=== PATIENT | female | born 1985 | race Caucasian/White ===

== ENCOUNTER → 2016-08-09 | Outpatient (REF) | payer OTHER ==
[~2016-08-09] MED LIST: /PANT40TA PO; CEFD300CAP PO; CELE-19 PO; FERR325T PO; FERROUS SULFATE PO; MACR100C3 PO; MAG400TA PO; MAXA10TA15 PO; MYLI40DR PO; NEUR600T PO; NO HISTORICAL MEDS; PAXI10TA2 PO; PERCOCET PO; POTA10CA PO; PROT1TAB2 PO; TYLE325T5 PO; VITMTA PO
[2016-08-09 20:15] LABS: ALBUMIN 3.8 GM/DL (3.2-5.2); ALBUMIN/GLOBULIN RATIO 1.03 (1.00-1.93); ALKALINE PHOSPHATASE 88 U/L (45-117); ALT/SGPT 18 U/L (12-78); ANION GAP 5 MEQ/L (8-16); AST/SGOT 16 U/L (15-37); BILIRUBIN,TOTAL 0.3 MG/DL (0.2-1.0); BLOOD UREA NITROGEN 6 MG/DL (7-18); CALCIUM LEVEL 8.2 MG/DL (8.5-10.1); CARBON DIOXIDE LEVEL 29 MEQ/L (21-32); CHLORIDE LEVEL 105 MEQ/L (98-107); CREATININE FOR GFR 0.81 MG/DL (0.55-1.02); GLOMERULAR FILTRATION RATE > 60.0 (>60); GLUCOSE, FASTING 79 MG/DL (70-105); SODIUM LEVEL 139 MEQ/L (136-145); TOTAL PROTEIN 7.5 GM/DL (6.4-8.2)
[2016-08-09 20:23] LABS: FOLATE 13.1 NG/ML; VITAMIN B12 LEVEL 331 PG/ML
[2016-08-09 20:59] LABS: MEAN CORPUSCULAR HEMOGLOBIN 26.1 pg (27.0-33.0); MEAN CORPUSCULAR HGB CONC 32.1 g/dl (32.0-36.5); MEAN CORPUSCULAR VOLUME 81.4 fl (80.0-96.0); RED CELL DISTRIBUTION WIDTH 16.1 % (11.5-14.5); WHITE BLOOD COUNT 5.6 K/mm3 (4.0-10.0)
== END ==
LOC: M SFHCADAM 15:31
PROVIDERS: ATTEND Physician Assistant
DX: D50.9 Iron deficiency anemia, unspecified (principal); Z98.890 Other specified postprocedural states

== ENCOUNTER → 2017-01-24 | Outpatient (CLI) | payer OTHER ==
[~2017-01-24] MED LIST changes: -CELE-19 PO; +CELE1CAP4 PO; +FERR1TAB8 PO; -FERR325T PO; +GASTROGRAFIN SOLUTION 30ML (Q9963) As Ordered ONE; +ISOVUE-370 76% 100ML VIAL (Q9967) As Ordered ONE; -MACR100C3 PO; +MACR100C43 PO; +PAXI10TA12 PO; -PAXI10TA2 PO; +RANI150T PO; +VIST25CA PO; +ZOFR4TAB3 PO
--- NOTE | 2017-01-24 17:02 | REP ---
Clinical: Abdominal pain and constipation. Technique: Axial contrast enhanced images from the lung bases to the pubic symphysis using oral and 100 ml Isovue 370 intravenous contrast material with precontrast images of the abdomen as well as coronal and sagittal re-formations. Comparison: 01/13/2016. Findings: Lung bases are clear. Visualized heart and pericardium normal. Liver, spleen, pancreas, bilateral adrenal glands and kidneys are normal the patient is status post cholecystectomy. The enteric system is without obstruction or acute inflammatory process. 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 The pelvis demonstrates normal bladder and age-appropriate uterus/adnexa. Right tubal ligation clip identified; left clip is not visualized and should be correlated with possible history of prior left oophorectomy. No pelvic fluid or ascites. No free air. No adenopathy. Vasculature is normal. Musculoskeletal structures are intact. Impression: Normal contrast enhanced CT of the abdomen and pelvis. No acute abdominopelvic pathology appreciated. Signed by Tristin Banuelos MD 01/24/2017 04:53 P
== END ==
LOC: M RAD 14:25
PROVIDERS: ATTEND Surgery
DX: R10.84 Generalized abdominal pain (principal); K58.2 Mixed irritable bowel syndrome

== ENCOUNTER → 2017-01-26 | Outpatient (REF) | payer OTHER ==
[~2017-01-26] MED LIST changes: -GASTROGRAFIN SOLUTION 30ML (Q9963) As Ordered ONE; -ISOVUE-370 76% 100ML VIAL (Q9967) As Ordered ONE
[2017-01-26 19:29] LABS: MEAN CORPUSCULAR HEMOGLOBIN 27.2 pg (27.0-33.0); MEAN CORPUSCULAR HGB CONC 32.1 g/dl (32.0-36.5); MEAN CORPUSCULAR VOLUME 84.6 fl (80.0-96.0); RED CELL DISTRIBUTION WIDTH 16.8 % (11.5-14.5); WHITE BLOOD COUNT 9.4 K/mm3 (4.0-10.0)
[2017-01-26 19:41] LABS: ALBUMIN 3.7 GM/DL (3.2-5.2); ALBUMIN/GLOBULIN RATIO 1.23 (1.00-1.93); ALKALINE PHOSPHATASE 79 U/L (45-117); ALT/SGPT 21 U/L (12-78); ANION GAP 6 MEQ/L (8-16); AST/SGOT 15 U/L (15-37); BILIRUBIN,TOTAL 0.3 MG/DL (0.2-1.0); BLOOD UREA NITROGEN 8 MG/DL (7-18); CALCIUM LEVEL 8.6 MG/DL (8.5-10.1); CARBON DIOXIDE LEVEL 28 MEQ/L (21-32); CHLORIDE LEVEL 105 MEQ/L (98-107); CREATININE FOR GFR 0.69 MG/DL (0.55-1.02); GLOMERULAR FILTRATION RATE > 60.0 (>60); GLUCOSE, FASTING 81 MG/DL (70-105); POTASSIUM SERUM 4.4 MEQ/L (3.5-5.1); SODIUM LEVEL 139 MEQ/L (136-145); TOTAL PROTEIN 6.7 GM/DL (6.4-8.2)
[2017-01-26 20:17] LABS: VITAMIN B12 LEVEL 299 PG/ML
== END ==
LOC: M SFHCADAM 15:43
PROVIDERS: ATTEND Physician Assistant
DX: D50.9 Iron deficiency anemia, unspecified (principal); Z98.890 Other specified postprocedural states; E55.9 Vitamin D deficiency, unspecified

== ENCOUNTER 2017-05-26 22:10 | Emergency (ER) | payer OTHER ==
[~2017-05-26] VITALS: Ht 167.6 cm; Wt 72.7 kg
[~2017-05-26 22:10] MED LIST changes: -RANI150T PO; -VIST25CA PO; -ZOFR4TAB3 PO
[2017-05-26] MEDS ORDERED: RANI150T PO (22:21)
[2017-05-26] MEDS ORDERED: ONDANSETRON 4MG/2ML VIAL (J2405) IV ONE (23:45)
[2017-05-26] MEDS ORDERED: NS 1,000 ML IV ONE (23:45)
[2017-05-27 00:33] LABS: CONTROL LINE UCG INT CTR LINE PRESENT
[2017-05-27 00:41] LABS: BASO % 0.4 % (0.0-1.0); EOS # 0.1 10^3/uL (0.0-0.50); EOS % 0.8 % (0.0-3.0); IMMATURE GRANULOCYTE % 0.4 % (0-0); LYMPH # 3.3 10^3/uL (1.5-4.5); LYMPH % 46.1 % (24.0-44.0); MEAN CORPUSCULAR HEMOGLOBIN 26.7 pg (27.0-33.0); MEAN CORPUSCULAR HGB CONC 31.6 g/dl (32.0-36.5); MEAN CORPUSCULAR VOLUME 84.4 fl (80.0-96.0); MONO # 0.5 10^3/uL (0.0-0.8); MONO % 6.9 % (0.0-5.0); NEUTROPHILS # 3.2 10^3/uL (1.8-7.7); NEUTROPHILS % 45.4 % (36.0-66.0); PLATELET COUNT, AUTOMATED 202 10^3/uL (150-450); RED CELL DISTRIBUTION WIDTH 16.3 % (11.5-14.5); WHITE BLOOD COUNT 7.1 10^3/uL (4.0-10.0)
[2017-05-27 00:49] LABS: ALBUMIN 3.3 GM/DL (3.2-5.2); ALBUMIN/GLOBULIN RATIO 1.06 (1.00-1.93); ALKALINE PHOSPHATASE 85 U/L (45-117); ALT/SGPT 22 U/L (12-78); ANION GAP 5 MEQ/L (8-16); AST/SGOT 16 U/L (7-37); BILIRUBIN,TOTAL 0.2 MG/DL (0.2-1.0); BLOOD UREA NITROGEN 6 MG/DL (7-18); CALCIUM LEVEL 8.5 MG/DL (8.5-10.1); CARBON DIOXIDE LEVEL 29 MEQ/L (21-32); CHLORIDE LEVEL 108 MEQ/L (98-107); CREATININE FOR GFR 0.55 MG/DL (0.55-1.02); GLOMERULAR FILTRATION RATE > 60.0 (>60); GLUCOSE, FASTING 94 MG/DL (70-105); POTASSIUM SERUM 3.5 MEQ/L (3.5-5.1); SODIUM LEVEL 142 MEQ/L (136-145); TOTAL PROTEIN 6.4 GM/DL (6.4-8.2)
[2017-05-27] MEDS ORDERED: PERCOCET 5MG/325MG TAB PO ONE ×2 (01:15→01:30)
[2017-05-27 01:28] VITALS: BP 123/62
[2017-05-27] MEDS ORDERED: ONDANSETRON 4 MG ORAL DISINTEGRATING TAB (S0181) PO ONE (01:30)
[2017-05-27] MEDS ORDERED: VIST25CA PO (01:39)
[2017-05-27] MEDS ORDERED: ZOFR4TAB3 PO (01:39)
== END 2017-05-27 01:48 | disposition home or self-care (01) ==
LOC: M ED 22:10
DX: R10.9 Unspecified abdominal pain (principal); Z98.84 Bariatric surgery status
CPT/HCPCS: 80053; 81001; 83690; 84703; 85025; 87086; 96374; 99284; J2405

== ENCOUNTER → 2017-08-08 | Outpatient (REF) | payer OTHER | LOC: M LAB REF 11:23 | DX: R10.13 Epigastric pain (principal) | CPT/HCPCS: 83630 ==

== ENCOUNTER → 2017-08-09 | Outpatient (CLI) | payer OTHER ==
[2017-08-09 11:49] LABS: CREATININE FOR GFR 0.71 MG/DL (0.55-1.02); FERRITIN 21 NG/ML (8-252); GLOMERULAR FILTRATION RATE > 60.0 (>60); IRON (FE) 128 UG/DL (50-170); LIPASE 146 U/L (73-393); PERCENT SATURATION 34.9 % (13.2-45.0); TOTAL IRON BINDING CAPACITY 367 UG/DL (250-450)
[2017-08-09 11:49] LABS: BLOOD UREA NITROGEN 8 MG/DL (7-18)
[2017-08-12 08:06] LABS: IgG SUBCLASS 4(ONLY) <1 mg/dL (2-96)
== END ==
LOC: M LAB 10:47
DX: R10.13 Epigastric pain (principal)
CPT/HCPCS: 82565

== ENCOUNTER 2017-08-13 10:30 | Day surgery (SDC) | payer OTHER ==
[2017-08-13] MEDS: NS 1,000 ML IV (11:44)
[2017-08-13] MEDS ORDERED: PROPOFOL 200 MG/20 ML VIAL As Ordered ×3 (13:11→13:12)
[2017-08-13] MEDS ORDERED: LIDOCAINE 2% INJ 100 MG/5 ML SDV (FOR ANES.) As Ordered (13:12)
== END 2017-08-13 14:16 | disposition home or self-care (01) ==
LOC: M OPP 10:30
DX: R19.7 Diarrhea, unspecified (principal); K64.8 Other hemorrhoids; D50.9 Iron deficiency anemia, unspecified; Z98.0 Intestinal bypass and anastomosis status; K58.9 Irritable bowel syndrome, unspecified; K91.2 Postsurgical malabsorption, not elsewhere classified; K21.9 Gastro-esophageal reflux disease without esophagitis; R12 Heartburn; R23.3 Spontaneous ecchymoses; I95.9 Hypotension, unspecified; M54.9 Dorsalgia, unspecified; F41.9 Anxiety disorder, unspecified; F32.9 Major depressive disorder, single episode, unspecified; R06.2 Wheezing; Z98.84 Bariatric surgery status; Z87.891 Personal history of nicotine dependence; Z79.899 Other long term (current) drug therapy; Z80.49 Family history of malignant neoplasm of other genital organs
CPT/HCPCS: 45380

== ENCOUNTER 2018-01-01 18:51 | Emergency (ER) | payer OTHER ==
[2018-01-01 21:01] LABS: BASO % 0.4 % (0.0-1.0); EOS # 0.1 10^3/uL (0.0-0.50); EOS % 0.9 % (0.0-3.0); HEMATOCRIT 31.8 % (36.0-47.0); HEMOGLOBIN 10.2 g/dl (12.0-15.5); IMMATURE GRANULOCYTE % 0.1 % (0-3.0); LYMPH # 2.3 10^3/uL (1.5-4.5); LYMPH % 32.2 % (24.0-44.0); MEAN CORPUSCULAR HEMOGLOBIN 27.1 pg (27.0-33.0); MEAN CORPUSCULAR HGB CONC 32.1 g/dl (32.0-36.5); MEAN CORPUSCULAR VOLUME 84.6 fl (80.0-96.0); MONO # 0.3 10^3/uL (0.0-0.8); MONO % 4.4 % (0.0-5.0); NEUTROPHILS # 4.3 10^3/uL (1.8-7.7); PLATELET COUNT, AUTOMATED 258 10^3/uL (150-450); RED BLOOD COUNT 3.76 10^6/uL (4.00-5.40); RED CELL DISTRIBUTION WIDTH 14.5 % (11.5-14.5)
[2018-01-01] MEDS: METOCLOPRAMIDE INJ 10MG/2ML VIAL (J2765) IV (21:13)
[2018-01-01] MEDS: NS 1,000 ML IV (21:14)
[2018-01-01] MEDS: ACETAMINOPHEN 325 MG TAB PO (21:14)
[2018-01-01 21:19] LABS: CONTROL LINE HCG INT CTR LINE PRESENT; HCG, SERUM QUALITATIVE NEGATIVE (NEGATIVE)
[2018-01-01 21:29] LABS: ANION GAP 5 MEQ/L (8-16); BLOOD UREA NITROGEN 8 MG/DL (7-18); CALCIUM LEVEL 8.6 MG/DL (8.5-10.1); CARBON DIOXIDE LEVEL 27 MEQ/L (21-32); CHLORIDE LEVEL 108 MEQ/L (98-107); CPK CREATINE PHOSPHOKINASE 87 U/L (26-192); CREATININE FOR GFR 0.65 MG/DL (0.55-1.30); GLOMERULAR FILTRATION RATE > 60.0 (>60); GLUCOSE, FASTING 88 MG/DL (70-100); POTASSIUM SERUM 3.9 MEQ/L (3.5-5.1); SODIUM LEVEL 140 MEQ/L (136-145); TROPONIN I < 0.02 NG/ML (< 0.10)
[2018-01-01 21:35] LABS: CK-MB VALUE MASS < 1.0 NG/ML (<3.6); MB/CK RELATIVE INDEX 1.14 (< OR =4); THYROID STIMULATING HORMONE 0.893 uIU/ML (0.358-3.740)
[2018-01-01] MEDS: GASTROGRAFIN SOLUTION 30ML PO ×2 (22:00→22:11)
[2018-01-01] MEDS ORDERED: ISOVUE-370 76% 100ML VIAL (Q9967) As Ordered (22:58)
[2018-01-01] MEDS: MORPHINE 2 MG/ML 1ML SYRINGE (J2270) IV (22:58)
[2018-01-01 23:17] LABS: VITAMIN B12 LEVEL 290 PG/ML (247-911)
[2018-01-02] MEDS: KETOROLAC 30 MG/ML VIAL (J1885) IV (00:27)
== END 2018-01-02 00:47 | disposition home or self-care (01) ==
LOC: M ED 01-02 00:47
DX: R10.9 Unspecified abdominal pain (principal); R20.2 Paresthesia of skin; R51 Headache; K21.9 Gastro-esophageal reflux disease without esophagitis; F33.9 Major depressive disorder, recurrent, unspecified; F41.9 Anxiety disorder, unspecified; Z98.0 Intestinal bypass and anastomosis status; Z98.890 Other specified postprocedural states; Z86.69 Personal history of other diseases of the nervous system and sense organs; Z87.19 Personal history of other diseases of the digestive system; Z87.440 Personal history of urinary (tract) infections
CPT/HCPCS: Q9963

== ENCOUNTER → 2018-02-14 | Outpatient (REF) | payer OTHER ==
[2018-02-14 12:23] LABS: BASO % 0.9 % (0.0-1.0); EOS # 0.1 10^3/uL (0.0-0.50); EOS % 1.3 % (0.0-3.0); HEMATOCRIT 38.2 % (36.0-47.0); HEMOGLOBIN 12.3 g/dl (12.0-15.5); IMMATURE GRANULOCYTE % 0.2 % (0-3.0); LYMPH # 1.6 10^3/uL (1.5-4.5); LYMPH % 34.2 % (24.0-44.0); MEAN CORPUSCULAR HEMOGLOBIN 25.8 pg (27.0-33.0); MEAN CORPUSCULAR HGB CONC 32.2 g/dl (32.0-36.5); MEAN CORPUSCULAR VOLUME 80.3 fl (80.0-96.0); MONO # 0.2 10^3/uL (0.0-0.8); MONO % 5.1 % (0.0-5.0); NEUTROPHILS # 2.6 10^3/uL (1.8-7.7); NEUTROPHILS % 58.3 % (36.0-66.0); PLATELET COUNT, AUTOMATED 255 10^3/uL (150-450); RED BLOOD COUNT 4.76 10^6/uL (4.00-5.40); RED CELL DISTRIBUTION WIDTH 15.3 % (11.5-14.5); RETIC HEMOGLOBIN EQUIVALENT 29.8 pg (24-36); RETICULOCYTE # 26.2 10^9/L (17-77); RETICULOCYTE % 0.6 % (0.5-1.5); WHITE BLOOD COUNT 4.5 10^3/uL (4.0-10.0)
[2018-02-14 13:00] LABS: FOLATE 15.4 NG/ML (>5.4); TOTAL 25(OH) VITAMIN D 18.3 NG/ML (30.0-100.0); VITAMIN B12 LEVEL 556 PG/ML (247-911)
[2018-02-14 13:16] LABS: ALBUMIN 4.4 GM/DL (3.2-5.2); ANION GAP 9 MEQ/L (8-16); BLOOD UREA NITROGEN 4 MG/DL (7-18); CARBON DIOXIDE LEVEL 24 MEQ/L (21-32); CHLORIDE LEVEL 106 MEQ/L (98-107); CREATININE FOR GFR 0.73 MG/DL (0.55-1.30); FERRITIN 12 NG/ML (8-252); GLOMERULAR FILTRATION RATE > 60.0 (>60); GLUCOSE, FASTING 79 MG/DL (70-100); IRON (FE) 112 UG/DL (50-170); PERCENT SATURATION 23.9 % (13.2-45.0); POTASSIUM SERUM 4.1 MEQ/L (3.5-5.1); PREALBUMIN 20.2 MG/DL (20.0-40.0); SODIUM LEVEL 139 MEQ/L (136-145); TOTAL IRON BINDING CAPACITY 469 UG/DL (250-450)
[2018-02-21 14:14] LABS: COPPER PLASMA 112 ug/dL (72-166); HLA-B27 Negative (.); SELENIUM LEVEL BLOOD 181 ug/L (100-340); TRANSFERRIN 334 mg/dL (200-370); VITAMIN B6,PYRIDOXAL PHOSPHATE 7.8 ug/L (2.0-32.8); VITAMIN E(ALPHA TOCOPHEROL) 10.2 mg/L (5.9-19.4); VITAMIN E(GAMMA TOCOPHEROL) 1.3 mg/L (0.7-4.9); ZINC PLASMA 87 ug/dL (56-134)
[2018-02-21 14:14] LABS: VITAMIN A, RETINOL LEVEL 29.2 ug/dL (31.2-89.1)
== END ==
LOC: M SFHCPLAZ 08:59
DX: E88.09 Other disorders of plasma-protein metabolism, not elsewhere classified (principal); D50.9 Iron deficiency anemia, unspecified; Z98.84 Bariatric surgery status; M54.41 Lumbago with sciatica, right side; R25.2 Cramp and spasm; E55.9 Vitamin D deficiency, unspecified
CPT/HCPCS: 82040

== ENCOUNTER → 2018-03-05 | Outpatient (CLI) | payer OTHER ==
[~2018-03-05] MED LIST changes: -/PANT40TA PO; -CEFD300CAP PO; -CELE1CAP4 PO; +E-Z-PAQUE 96% w/w SUSP 176GM BTL As Ordered; -FERR1TAB8 PO; -FERROUS SULFATE PO; -MACR100C43 PO; -MAG400TA PO; -MAXA10TA15 PO; -MYLI40DR PO; -NEUR600T PO; -NO HISTORICAL MEDS; -PAXI10TA12 PO; -PERCOCET PO; -POTA10CA PO; -PROT1TAB2 PO; -TYLE325T5 PO; -VITMTA PO
== END ==
LOC: M RAD 07:47
DX: R10.9 Unspecified abdominal pain (principal)
CPT/HCPCS: 74250

== ENCOUNTER → 2018-03-05 | Outpatient (REF) | payer OTHER ==
[2018-03-05 12:46] LABS: FREE T4 0.82 NG/DL (0.76-1.46); THYROID STIMULATING HORMONE 0.602 uIU/ML (0.358-3.740)
== END ==
LOC: M SFHCPLAZ 10:37
DX: F41.9 Anxiety disorder, unspecified (principal)

== ENCOUNTER → 2018-03-15 | Outpatient (CLI) | payer OTHER | LOC: M RAD 10:58 | DX: M54.41 Lumbago with sciatica, right side (principal); M54.6 Pain in thoracic spine; M54.2 Cervicalgia | CPT/HCPCS: 72040 ==

== ENCOUNTER → 2018-03-28 | Outpatient (REF) | payer OTHER ==
[2018-03-28 13:11] LABS: ERYTHROCYTE SEDIMENTATION RATE 14 mm/hr (0-20)
[2018-03-28 13:28] LABS: C REACTIVE PROTEIN QUANTITATIV < 0.30 MG/DL (0.00-0.30)
[2018-03-29 10:27] LABS: ANTINUCLEAR ANTIBODIES DIRECT Negative (Negative)
== END ==
LOC: M SFHCPLAZ 09:34
DX: R20.8 Other disturbances of skin sensation (principal)

== ENCOUNTER 2018-04-06 19:14 | Emergency (ER) | payer OTHER ==
[2018-04-06] MEDS: KETOROLAC 60 MG/2 ML VIAL (J1885) IM (20:28)
[2018-04-06] MEDS: PERCOCET 5MG/325MG TAB PO (22:15)
== END 2018-04-06 22:46 | disposition home or self-care (01) ==
LOC: M ED 19:14
DX: S00.03XA Contusion of scalp, initial encounter (principal); W06.XXXA Fall from bed, initial encounter; Y92.013 Bedroom of single-family (private) house as the place of occurrence of the external cause; R51 Headache; M54.2 Cervicalgia; K21.9 Gastro-esophageal reflux disease without esophagitis; F41.9 Anxiety disorder, unspecified; F33.9 Major depressive disorder, recurrent, unspecified; F17.210 Nicotine dependence, cigarettes, uncomplicated
CPT/HCPCS: J1885

== ENCOUNTER 2018-05-06 10:34 | Outpatient (RCR) | payer OTHER | END 2018-05-22 | LOC: M PT 10:34 | DX: M54.41 Lumbago with sciatica, right side (principal) | CPT/HCPCS: 97110 ==

== ENCOUNTER → 2018-05-10 | Outpatient (CLI) | payer OTHER | LOC: M PAIN 13:15 | DX: M54.6 Pain in thoracic spine (principal); M54.41 Lumbago with sciatica, right side; M54.42 Lumbago with sciatica, left side; R25.2 Cramp and spasm; E55.9 Vitamin D deficiency, unspecified; F32.9 Major depressive disorder, single episode, unspecified; F41.0 Panic disorder [episodic paroxysmal anxiety]; F17.210 Nicotine dependence, cigarettes, uncomplicated; Z79.899 Other long term (current) drug therapy; Z98.84 Bariatric surgery status | CPT/HCPCS: G0463 ==

== ENCOUNTER 2018-05-22 12:40 | Emergency (ER) | payer OTHER ==
[2018-05-22] MEDS: METHOCARBAMOL 750 MG TAB PO (13:46)
[2018-05-22] MEDS: KETOROLAC 60 MG/2 ML VIAL (J1885) IM (13:46)
== END 2018-05-22 14:19 | disposition home or self-care (01) ==
LOC: M ED 12:40
DX: Z04.1 Encounter for examination and observation following transport accident (principal); M79.18 Myalgia, other site; K58.9 Irritable bowel syndrome, unspecified; K21.9 Gastro-esophageal reflux disease without esophagitis; F33.9 Major depressive disorder, recurrent, unspecified; F41.9 Anxiety disorder, unspecified; F17.200 Nicotine dependence, unspecified, uncomplicated; Z86.69 Personal history of other diseases of the nervous system and sense organs
CPT/HCPCS: J1885

== ENCOUNTER 2018-05-24 09:53 | Outpatient (RCR) | payer OTHER | END 2018-06-21 | LOC: M PT 09:53 | DX: M54.41 Lumbago with sciatica, right side (principal) | CPT/HCPCS: 97110 ==

== ENCOUNTER → 2018-05-30 | Outpatient (CLI) | payer OTHER | LOC: M RAD 11:31 | DX: M54.6 Pain in thoracic spine (principal); R25.2 Cramp and spasm | CPT/HCPCS: 70551 ==

== ENCOUNTER → 2019-04-30 | Outpatient (CLI) | payer OTHER ==
[~2019-04-30] MED LIST changes: +ALPR0.5T3; +BENT10CA PO; +CEFD300C41 PO; +CELE1CAP4 PO; +CIPR-249 PO; +CYCL10TA; +D-101000; +DOCU100C16; +DULO1CAP6; -E-Z-PAQUE 96% w/w SUSP 176GM BTL As Ordered; +FERR1TAB8 PO; +FERR325T3 PO; +FERROUS SULFATE PO; +GABA800T4; +HYDR-3715 PO; +KLOR10TA76 PO; +MACR100C43 PO; +MAG400TA PO; +MAGN200T PO; +MAXA10TA15 PO; +MULTCAP PO; +MYLI40DR PO; +NEUR600T PO; +NO HISTORICAL MEDS; +ONDA4TAB5; +PANT40TA3 PO; +PAXI10TA12 PO; +PERC5TAB12 PO; +PERCOCET PO; +POTA1TAB23; +PROT1TAB2 PO; +QUET1TAB8; +RANI150T PO; +TYLE325T5 PO; +VIST25CA PO; +VITMTA PO; +ZOFR4TAB14 PO
--- NOTE | 2019-04-30 18:26 | REP ---
LEFT HIP, TWO VIEWS: HIP: There is no evidence of an acute fracture, dislocation or intrinsic bone disease. IMPRESSION: No fracture or dislocation. Electronically Signed by Natanael Elmore MD 04/30/2019 06:48 P
== END ==
LOC: M WUC 17:47
PROVIDERS: ATTEND Nurse Practitioner Family
DX: M25.552 Pain in left hip (principal); W10.8XXA Fall (on) (from) other stairs and steps, initial encounter

== ENCOUNTER 2022-08-19 14:10 | Emergency (ER) | payer OTHER ==
[~2022-08-19] VITALS: Ht 167.6 cm; Wt 77.3 kg
[~2022-08-19 14:10] MED LIST changes: +CYCL-707; -CYCL10TA; -KLOR10TA76 PO; -MAG400TA PO; +MAGN400T35 PO; +ONDA-83; -ONDA4TAB5; +PANT40TA29 PO; -PANT40TA3 PO; -PAXI10TA12 PO; +PAXI10TA13 PO; +POTA-136 PO; +QUET100T2; -QUET1TAB8
[2022-08-19] MEDS ORDERED: ZOLO25TA PO (14:43)
[2022-08-19] MEDS ORDERED: HYDR-643 PO (14:43)
[2022-08-19] MEDS ORDERED: OMEP40CA4 PO (14:43)
[2022-08-19] MEDS ORDERED: BUSP1TAB PO (14:59)
[2022-08-19 15:28] LABS: BASO # 0.1 10^3/uL (0.0-0.2); BASO % 0.7 % (0.0-1.0); EOS % 0.1 % (0.0-3.0); HEMATOCRIT 30.9 % (36.0-47.0); HEMOGLOBIN 9.4 g/dl (12.0-15.5); LYMPH # 0.8 10^3/uL (1.5-5.0); MEAN CORPUSCULAR HEMOGLOBIN 23.4 pg (27.0-33.0); MEAN CORPUSCULAR HGB CONC 30.4 g/dl (32.0-36.5); MEAN CORPUSCULAR VOLUME 77.1 fl (80.0-96.0); MONO # 0.4 10^3/uL (0.0-0.8); NEUTROPHILS # 5.8 10^3/uL (1.5-8.5); NEUTROPHILS % 82.6 % (36.0-66.0); PLATELET COUNT, AUTOMATED 206 10^3/uL (150-450); RED BLOOD COUNT 4.01 10^6/uL (4.00-5.40)
[2022-08-19 15:55] LABS: BLOOD UREA NITROGEN 6 MG/DL (9-23); CARBON DIOXIDE LEVEL 20 MMOL/L (20-31); CHLORIDE LEVEL 110 MMOL/L (98-107); CREATININE FOR GFR 0.55 MG/DL (0.55-1.30); GLOMERULAR FILTRATION RATE > 60.0 (>60); GLUCOSE, FASTING 89 MG/DL (60-100); POTASSIUM SERUM 3.5 MMOL/L (3.5-5.1); SODIUM LEVEL 136 MMOL/L (136-145)
[2022-08-19 16:00] VITALS: BP 141/63
[2022-08-19 16:17] LABS: AMPHETAMINES LEVEL URINE NEGATIVE (NEGATIVE); BARBITURATES URINE NEGATIVE (NEGATIVE); COCAINE METABOLITE URINE NEGATIVE (NEGATIVE); METHADONE URINE NEGATIVE (NEGATIVE); OPIATES URINE NEGATIVE (NEGATIVE)
[2022-08-19 16:18] LABS: BENZODIAZEPINES URINE NEGATIVE (NEGATIVE); PHENCYCLIDINE URINE NEGATIVE (NEGATIVE)
[2022-08-19 16:24] LABS: CANNABINOIDS URINE POSITIVE (NEGATIVE)
== END 2022-08-19 17:07 | disposition home or self-care (01) ==
LOC: M ED 14:10 → EDBD 14:10 → M ED 17:07
DX: R56.9 Unspecified convulsions (principal); F31.9 Bipolar disorder, unspecified; K21.9 Gastro-esophageal reflux disease without esophagitis; M79.7 Fibromyalgia; F17.200 Nicotine dependence, unspecified, uncomplicated; Z79.899 Other long term (current) drug therapy